=== PATIENT | female | born 1955 | race African-American/Black ===

== ENCOUNTER 2016-06-02 20:05 | Observation (INO) ==
[2016-06-02] MEDS ORDERED: ASPIRIN PO STA (20:22)
--- NOTE | 2016-06-02 20:30 | ED EKG INTERP ---
EKG Interpretation - EKG Time of EKG reading by physician:: 20:27 EKG Read and Signed by:: Doroteo Haynes EKG Interpretation (*Must complete 3 of following elements*): Abnormal Rate: 80 Rhythm: NSR [place]: left QRS: other (CANNOT RULE OUT ANTERIOR INFARCT, AGE UNDETERMINED) Attestation - Scribe Verification/Attestation Scribe:: Bea Charles Acting as Scribe for:: Doroteo Haynes Scribe documention review:: This chart was documented by a scribe and accurately reflects the service the provider performed and the decisions made by the provider. Physician Attestation - Physician Attestation I, the provider, attest to the following statement:: Doroteo Haynes Physician documentation Attestation:: This documentation recorded by the scribe accurately reflects the service I personally performed and the decisions made by me.
--- NOTE | 2016-06-02 20:32 | EKG Report ---
Test Performed on : 06/02/2016 8:26:51 PM Test Reason : CHEST PAIN Blood Pressure : / mmHG Vent. Rate : 080 BPM Atrial Rate : 080 BPM P-R Int : 174 ms QRS Dur : 082 ms QT Int : 386 ms P-R-T Axes : 039 -42 002 degrees QTc Int : 445 ms Normal sinus rhythm. Left axis deviation Cannot rule out Anterior infarct (cited on or before 30-SEP-2013) Abnormal ECG When compared with ECG of 30-SEP-2013 02:06, No significant change was found Unconfirmed Result
[2016-06-02 20:51] LABS: INR 0.9 (0.86-1.15); PROTIME 12.5 Seconds (12.1-15.5)
[2016-06-02 20:52] LABS: PTT PL 30.5 Seconds (22.6-43.9)
--- NOTE | 2016-06-02 21:10 | PROVIDER DOCUMENTATION ---
HPI-Chest Pain - General Source: patient - History of Present Illness-CP Location: reports: substernal Chest Pain Radiation: reports: arms (LEFT), back Quality of Pain: reports: aching, fullness Severity in ED: moderate Onset/Duration: 1 hour ago Timing: still present Context/Activities at Onset: reports: light activity Modifying Factors: improves with: nothing Associated Symptoms: reports: back pain. denies: diaphoresis, nausea, vomiting Nitro Today/Relief: no nitro taken today Aspirin Treatment Today: no aspirin today Prior Chest Pain/Cardiac Workup: reports: no prior chest pain, no prior cardiac workup Similar Symptoms Previously?: No Recently Seen Here or By Another Healthcare Provider: No <Bea Charles - Last Filed: 06/02/16 23:34> <Gabe Alvarenga - Last Filed: 06/03/16 00:20> - General Chief Complaint: Chest Pain Stated Complaint: CHEST PAIN Time Seen by Provider: 06/02/16 20:26 Allergies/Adverse Reactions: Patient Allergies Allergy/AdvReac Type Severity Reaction Status Date / Time codeine AdvReac HIVES Verified 09/30/13 02:28 Iodinated Contrast Media - AdvReac HIVES Verified 09/30/13 02:42 Oral and Home Medications: Home Medication List Medication Instructions Recorded Confirmed Last Taken Type Esomeprazole [Nexium] 40 mg PO DAILY #0 capsule 09/30/13 Unknown Rx LISINOpril [Prinivil] 20 mg PO DAILY 09/30/13 09/30/13 09/29/13 History Lactobacillus Rhamnosus GG 1 each PO DAILY 09/30/13 09/30/13 09/29/13 History [Probiotic] Cyclobenzaprine [Flexeril] 10 mg PO PRN 06/02/16 Unknown History - History of Present Illness-CP Nature of Presenting Problem: PT IS A 61YOF PRESENTING TO THE ED C/O CP. 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 PT DENIES ANY NAUSEA OR VOMITING. NO DIAPHORESIS AT THIS TIME. (Bea Charles) Review of Systems - Adult - REVIEW OF SYSTEMS - ADULT Constitutional: reports: no symptoms reported Eyes: reports: no symptoms reported Ears, Nose, Mouth & Throat: reports: no symptoms reported Cardiovascular: reports: see HPI, chest pain. denies: palpitations, syncope Respiratory: reports: no symptoms reported Gastrointestinal: reports: no symptoms reported Genitourinary: reports: no symptoms reported Musculoskeletal: reports: no symptoms reported Integumentary: reports: no symptoms reported Neurological: reports: no symptoms reported Psychiatric: reports: no symptoms reported Endocrine: reports: no symptoms reported Hematologic/Lymphatic: reports: no symptoms reported Allergic/Immunologic: reports: no symptoms reported All Other Systems: Reviewed and Negative <Bea Charles - Last Filed: 06/02/16 23:34> Past History - Adult - PAST MEDICAL HISTORY-ADULT Review of Records: reports: Old Records Reviewed, Nursing Assessment Review, Medications Reviewed, Social history reviewed & non-contributory. Major Childhood Illnesses: reports: denies history Cardiovascular: reports: HTN (recent diagnosis) Respiratory: reports: denies history Gastrointestinal: reports: GERD Obstetrical/Gynecological: reports: denies history Genitourinary: reports: denies history Musculoskeletal: reports: denies history Neurological: reports: denies history Endocrine/Immune: reports: denies history Other Conditions: reports: denies history - IMMUNIZATION STATUS Childhood Immunizations: See Nurse Assessment Flu Vaccine: See Nurse Assessment - FAMILY HISTORY Family History: reviewed, not pertinent - SOCIAL HISTORY Smoking: denies, non-smoker Substance Use: none/never, denies Alcohol Use Frequency: never Living Situation: family <Bea Charles - Last Filed: 06/02/16 23:34> Physical Exam-General - PHYSICAL EXAM-ADULT Initial Vital Signs Reviewed: Yes - CONSTITUTIONAL General Appearance: alert, mild distress, moderate distress. negative: appears well - EYES Eyes: PERRL/EOMI, pink conjunctivae, fundi clear, no AV nicking - HEAD, EARS, NOSE, MOUTH & THROAT HENMT: normocephalic/atraumatic, moist mucous membranes, normal ENT inspection, TMs normal, pharynx normal - NECK Neck: non-tender, full range of motion, supple, normal inspection - RESPIRATORY Respiratory: chest non-tender, lungs clear, normal breath sounds, no pleuratic chest pain, no respiratory distress, no accessory muscle use - CARDIOVASCULAR Cardiovascular: normal peripheral pulses, regular rate, rhythm, no edema, no gallop, no JVD, no murmur - GASTROINTESTINAL (ABDOMEN) Abdominal Exam: normal bowel sounds, non tender, soft, no organomegaly, no pulsatile mass - LYMPHATIC Lymphatic: no adenopathy - MUSCULOSKELETAL Back Exam: normal inspection, no CVA tenderness, no vertebral tenderness Extremity: normal range of motion, non-tender, normal gait, normal inspection, no pedal edema, no calf tenderness, normal capillary refill, pelvis stable - SKIN Integumentary: normal color, normal turgor, warm/dry - NEUROLOGIC 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 CORRELATE FOR PRIOER WORKUP AND CONSIDER FURTHER EVAL INDICATIED) <Bea Charles - Last Filed: 06/02/16 23:34> - CONSULTS/PCP/HOSPITALIST Notification #1 *Consult/PCP/Hospitalist*: Dr. 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 Consult Disposition: other #2 Consult: Dr. Lindquist Time Discussed: 00:19 (Will admit here and decide if transfe needed tomorrow.) Consult Disposition: Admit <Gabe Alvarenga - Last Filed: 06/03/16 00:20> - PLAN OF CARE/RESULTS Progress/Plan/Lab Results: Laboratory Tests 06/02/16 06/02/16 06/02/16 20:20 20:20 20:20 WBC RBC Hgb Hct MCV MCH MCHC RDW Std Deviation Plt Count MPV Immature Gran % (Auto) Neut % (Auto) Lymph % (Auto) [place] % (Auto) Eos % (Auto) Baso % (Auto) Immature Gran # (Auto) Neut # (Auto) Lymph # (Auto) [place] # (Auto) Eos # (Auto) Baso # (Auto) PT INR APTT (Factor Assay) D-Dimer Sodium 143 Potassium 3.5 Chloride 105 Carbon Dioxide 24 L Anion Gap 14 BUN 17 Creatinine 0.9 Estimated GFR/1.73 m2 > 60 BUN/Creatinine Ratio 19 Glucose 152 H Calculated Osmolality 289 Calcium 9.7 Magnesium 2.0 Total Bilirubin 0.50 AST 16 ALT 21 Alkaline Phosphatase 78 Creatine Kinase 146 Troponin T < 0.010 Jbl-[id number]-[id number] Pept 65 Total Protein 7.6 Albumin 4.0 Globulin 4.0 Albumin/Globulin Ratio 1.0 06/02/16 06/02/16 20:20 20:20 WBC 10.00 RBC 6.15 H Hgb 12.5 Hct 39.8 MCV 64.7 L MCH 20.3 L MCHC 31.4 L RDW Std Deviation 17.5 H Plt Count 266 MPV 11.1 H Immature Gran % (Auto) 0.3 Neut % (Auto) 52.0 Lymph % (Auto) 39.4 [place] % (Auto) 7.3 Eos % (Auto) 0.6 Baso % (Auto) 0.4 Immature Gran # (Auto) 0.03 Neut # (Auto) 5.20 Lymph # (Auto) 3.94 H [place] # (Auto) 0.73 H Eos # (Auto) 0.06 Baso # (Auto) 0.04 PT 12.5 INR 0.90 APTT (Factor Assay) 30.5 D-Dimer 0.79 H Sodium Potassium Chloride Carbon Dioxide Anion Gap BUN Creatinine Estimated GFR/1.73 m2 BUN/Creatinine Ratio Glucose Calculated Osmolality Calcium Magnesium Total Bilirubin AST ALT Alkaline Phosphatase Creatine Kinase Troponin T [id number] Pept Total Protein Albumin Globulin Albumin/Globulin Ratio Orders Category Date Time Status Cardiac Monitoring DIRECTED Care 06/02/16 20:22 Active Oxygen Therapy- ED Nursing DIRECTED Care 06/02/16 20:22 Active Saline Loc NOW Care 06/02/16 20:22 Active ANGIOGRAM/PULMONARY ARTERIES [CT] Stat Exams 06/02/16 22:02 Taken CHEST-2 VIEWS [RAD] Stat Exams 06/02/16 20:22 Taken CBC WITH ELECTRONIC DIFF [HEME] Stat Lab 06/02/16 20:20 Completed CK PROFILE [SP CHEM] Stat Lab 06/02/16 20:20 Completed COMPREHENSIVE METABOLIC PANEL [CHEM] Stat Lab 06/02/16 20:[address] D-DIMER [address] [COAG] Stat Lab 06/02/16 20:20 Completed MAGNESIUM [CHEM] Stat Lab 06/02/16 20:20 Completed PRO B-NATRIURETIC PEPTIDE Stat Lab 06/02/16 20:20 Completed [address]IME WITH INR PL [COAG] Stat Lab 06/02/16 20:[address] [COAG] Stat Lab 06/02/16 20:20 Completed TROPONIN T Stat Lab 06/02/16 20:20 Completed Aspirin Med 06/02/16 20:22 Discontinued 325 mg PO STAT STA Diphenhydramine [Benadryl] Med 06/02/16 22:13 Discontinued 50 mg IV NOW ONE Methylprednisolone Sod Succ [Solu-Medrol] Med 06/02/16 22:14 Discontinued 125 mg IV NOW ONE EKG [EKG] Stat Ther 06/02/16 20:22 Draft Vital Signs - 24 hr 06/02/16 20:15 Pulse Rate 87 Respiratory 20 Rate Blood Pressure 171/094 O2 Sat by Pulse 99 Oximetry (Bea Charles) Departure <Bea Charles - Last Filed: 06/02/16 23:34> - Departure Time of Disposition Order: 00:20 Certified Medical Emergency: Emergent <Gabe Alvarenga - Last Filed: 06/03/16 00:20> - Departure DIAGNOSIS: Chest pain Qualifiers: Chest pain type: unspecified Qualified Code(s): R07.9 - Chest pain, unspecified Disposition: ADMITTED INPATIENT 09 Condition: Stable Attestation - Scribe Verification/Attestation Scribe:: Bea Charles Acting as Scribe for:: Gabe Alvarenga Scribe documention review:: This chart was documented by a scribe and accurately reflects the service the provider performed and the decisions made by the provider. <Bea Charles - Last Filed: 06/02/16 23:34> - Physician/ LINDA Attestation Patient care was provided by Advanced Practice Provider:: Yes Advanced Practice Provider:: Gabe Alvarenga Advanced Practice Provider documentation review:: The Mid-level provider documentation, treatment plan and medical decision making was reviewed by the physician who agrees with all treatment and medical decision making by the [facility]. <Gabe Alvarenga - Last Filed: 06/03/16 00:20> Physician Attestation - Physician Attestation I, the provider, attest to the following statement:: Doroteo Haynes Physician documentation Attestation:: This documentation recorded by the scribe accurately reflects the service I personally performed and the decisions made by me. <Bea Charles - Last Filed: 06/02/16 23:34>
[2016-06-02 21:11] LABS: AGAP 14; ALKALINE PHOSPHATASE 78 U/L (32-104); BUN 17 mg/dL (8-22); CALCIUM 9.7 mg/dL (8.8-10.2); CHLORIDE 105 mmol/L (98-107); CK PROFILE 146 U/L (24-173); COSMO 289; GOT 16 U/L (10-30); GPT 21 U/L (10-36); POTASSIUM 3.5 mmol/L (3.5-5.1); SODIUM 143 mmol/L (136-145); TCO2 24 mmol/L (25-35); TOTAL PROTEIN 7.6 g/dL (6.3-8.3)
[2016-06-02] MEDS ORDERED: BENADRYL IV ONE (22:13)
[2016-06-02] MEDS ORDERED: SOLU-MEDROL IV ONE (22:14)
[2016-06-02 22:40] LABS: BASO% 0.4 % (0.0-0.8); EOS# 0.06 X1000 (0.0-0.7); EOS% 0.6 % (0.0-10.0); HEMATOCRIT 39.8 % (37.0-47.0); HEMOGLOBIN 12.5 g/dL (12.0-16.0); IMM GRAN# 0.03 X1000 (0.0-0.04); IMM GRAN% 0.3 % (0.0-0.5); LYMPH# 3.94 X1000 (1.2-3.4); LYMPH% 39.4 % (20.5-51.1); MANUAL DIFF NEEDED? NO; MCH 20.3 PG (27-31); MCHC 31.4 g/dL (33-37); MCV 64.7 FL (81-99); MONO# 0.73 X1000 (0.11-0.59); MONO% 7.3 % (1.7-9.3); MPV 11.1 FL (7.4-10.4); PLT 266 X1000 (130-400); RBC 6.15 XMIL (4.2-5.4)
[2016-06-03] MEDS ORDERED: PNEUMOVAX 23 IM ONE (01:19)
[2016-06-03] MEDS ORDERED: SALINE LOCK IV FLUID XX ONE (05:39)
[2016-06-03] MEDS ORDERED: ZOFRAN IV PRN (05:39)
[2016-06-03] MEDS ORDERED: TYLENOL PO PRN (05:39)
[2016-06-03] MEDS ORDERED: PROTONIX IV SCH (05:45)
[2016-06-03] MEDS ORDERED: SODIUM CHLORIDE 0.9% INJ SCH (05:45)
[2016-06-03] MEDS ORDERED: KLOR-CON PO ONE (06:04)
[2016-06-03 07:11] LABS: BASO% 0.1 % (0.0-0.8); HEMATOCRIT 39.9 % (37.0-47.0); HEMOGLOBIN 12.5 g/dL (12.0-16.0); LYMPH# 1.25 X1000 (1.2-3.4); LYMPH% 14.5 % (20.5-51.1); MCH 20.7 PG (27-31); MCHC 31.3 g/dL (33-37); MCV 66.1 FL (81-99); MONO# 0.09 X1000 (0.11-0.59); NEUT% 84.4 % (42.2-75.2); PLT 258 X1000 (130-400); RBC 6.04 XMIL (4.2-5.4)
--- NOTE | 2016-06-03 07:13 | Diag Imaging Result Document ---
PROCEDURE NAME: CHEST-2 VIEWS - 06/02/2016 FRONTAL AND LATERAL CHEST, TWO VIEWS: COMPARISON: 09/30/2013. FINDINGS: The lungs are well expanded. The heart is not enlarged. No pleural effusions. No consolidation. Mild left hilar prominence. IMPRESSION: Mild left hilar prominence which may be due to adenopathy.
[2016-06-03 07:20] LABS: HEMOGLOBIN A1C 6.8 % (4.8-6.0)
--- NOTE | 2016-06-03 07:35 | HISTORY AND PHYSICAL ---
PRIMARY CARE PROVIDER: Florin Black MD. CHIEF COMPLAINT: Chest pain. HISTORY OF PRESENT ILLNESS: This is a 61-year-old female with a history of GERD, hypertension which was recently diagnosed, who presents to the emergency room with chest pain that has been lasting over a day. She states that it is midsternal into her left chest and going into her left arm. She denies nausea, vomiting, diaphoresis, dizziness or headache or have associated complaints. She did state that she was feeling a little nauseous this previous Monday, but it did not have to do with this particular episode. A CT angio of her chest was obtained which ruled out pulmonary embolism or vascular abnormality. It did note a left upper lobe pulmonary nodule and mediastinal lymphadenopathy which was suspicious for malignancy. LABORATORY DATA: Grossly normal. Patient's D-dimer was mildly elevated which was the reason the CTA was obtained. At any rate, her CK and troponins were normal to this point. She was transferred to [facility] for admission. ALLERGIES: 1. Codeine. 2. Iodine. 3. IV and oral contrast. PAST MEDICAL HISTORY: 1. GERD. 2. Hypertension. PREVIOUS SURGICAL HISTORY: 1. Partial hysterectomy. 2. Cholecystectomy. FAMILY HISTORY: Mother had CVA. Her younger sister had breast cancer. SOCIAL HISTORY: She is . Lives at home with her . Denies tobacco, alcohol or illicit drug use or abuse. REVIEW OF SYSTEMS: Fourteen point review of systems and pertinent positives listed above. All other systems were negative. PHYSICAL EXAMINATION: VITAL SIGNS: Temperature 98.4 degrees, pulse 92, respirations 18, blood pressure 146/78, oxygen saturation 100% on room air. GENERAL: Pleasant 61-year-old female, well-developed, well-nourished. Sitting in the medical floor bed. Answers all questions appropriately. No acute distress. HEENT: Head is atraumatic, normocephalic. Pupils equal, round, react to light. Extraocular eye movement intact. Sclerae is anicteric. Conjunctivae is pink. Oral mucosa is moist. NECK: Supple. No JVD. No thyromegaly. Trachea is midline. No cervical lymphadenopathy. CARDIAC: Regular rhythm. S1-S2 appreciated. No murmurs, gallops, rubs. LUNGS: Clear to auscultation bilaterally. Poor inspiratory effort. Symmetrical rise and fall with respirations. ABDOMEN: Protuberant, soft, nondistended, nontender. Bowel sounds present in all 4 quadrants. Normoactive. No pulsatile mass. No organomegaly. EXTREMITIES: No clubbing, cyanosis, or edema. NEUROLOGICAL: No focal or motor deficits. Alert and oriented x4. SKIN: Warm, dry, intact. No acute lesions or rash. DIAGNOSTIC DATA: CT angio noted a left upper lobe pulmonary nodule and mediastinal lymphadenopathy suspicious for malignancy. LABORATORY DATA: WBC 10, hemoglobin 12.5, hematocrit 39.8, platelet count 266,000, coags within normal limits. D-dimer 0.79, sodium 143, potassium 3.5, chloride 105, carbon dioxide 24, BUN 17, creatinine 0.9, glucose 152. CK 146, troponin 0.010. ASSESSMENT AND PLAN: 1. Left upper lobe pulmonary nodule. Rule out malignancy. 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 Recheck laboratory data. 2. Chest pain rule out myocardial infarction. Trend cardiac enzymes. It is unlikely that this is cardiac in nature. The chest pain has resolved. The patient was given Benadryl and Solu- Medrol in the ER at [facility]. 3. Hypertension. Continue lisinopril. 4. Gastroesophageal reflux disease. Protonix 40 mg IV daily. 5. Hyperglycemia. Check hemoglobin A1c if patient does not carry a diagnosis of diabetes mellitus. However she did receive IV Solu-Medrol at [facility]. Further recommendations per patient clinical course. Dictated by SUSHMA Myrick for Frank Enamorado MD
[2016-06-03 07:38] LABS: AGAP 16; BUN 16 mg/dL (8-22); CALCIUM 9.7 mg/dL (8.8-10.2); CHLORIDE 105 mmol/L (98-107); COSMO 291; POTASSIUM 4.4 mmol/L (3.5-5.1); SODIUM 141 mmol/L (136-145); TCO2 20 mmol/L (25-35)
[2016-06-03 08:23] LABS: MANUAL DIFF NEEDED? NO
[2016-06-03] MEDS ORDERED: CULTURELLE PO SCH (09:00)
[2016-06-03] MEDS ORDERED: PRINIVIL PO SCH (09:00)
--- NOTE | 2016-06-03 09:17 | Diag Imaging Result Document ---
PROCEDURE NAME: ANGIOGRAM/PULMONARY ARTERIES - 06/02/2016 CTA CHEST: COMPARISON: None available. FINDINGS: There is respiratory motion artifact that affects the distal branches of the pulmonary arteries near the bases. This could decrease sensitivity for detecting small pulmonary emboli. However, no large central embolus can be identified. There is trace atherosclerotic calcification at the aortic arch. There is no evidence of aortic aneurysm or dissection. There is mediastinal lymphadenopathy. A few lymph nodes exhibit vague calcifications and are probably related to prior granulomatous disease. There are also calcified lymph nodes in the left hilum. However, there are also a few prominent noncalcified lymph nodes that are nonspecific. For reference, there is a large noncalcified lymph node in the aorticopulmonary window that measures approximately 2.5 x 2.2 cm axially. There is an indeterminate large noncalcified pulmonary nodule in the anterior left upper lobe measuring approximately 1.6 x 1.5 cm axially. Although this could represent a prominent noncalcified granuloma, continued surveillance is recommended based on [place] Society Criteria with an initial follow-up CT in 3 months for a nodule this size. There is focal scarring versus atelectasis in the right upper lobe. No pleural fluid collections are identified. There is no pneumothorax. Limited views of the upper abdomen reveal diffuse hepatic steatosis. IMPRESSION: 1. Somewhat limited study due to motion artifact. However, no pulmonary embolism is appreciated. 2. Prominent indeterminate noncalcified nodule in the anterior left upper lobe for which continued surveillance is recommended. Please see above discussion. 3. Nonspecific upper mediastinal lymphadenopathy. Please see above discussion. 4. Diffuse hepatic steatosis.
--- NOTE | 2016-06-03 12:12 | Diag Imaging Result Document ---
PROCEDURE NAME: CHEST-2 VIEWS - 06/03/2016 INSPIRATORY AND EXPIRATORY RADIOGRAPHS OF THE CHEST, 2 VIEWS: COMPARISON: 06/02/2016. FINDINGS: There is no evidence of pneumothorax status post left lung biopsy. The lungs are stable otherwise. No new consolidations identified. Cardiac silhouette is stable. IMPRESSION: No evidence of pneumothorax status post left lung biopsy.
--- NOTE | 2016-06-03 12:28 | Diag Imaging Result Document ---
PROCEDURE NAME: CT GUIDED BIOPSY LUNG - 06/03/2016 CT-GUIDED LEFT LUNG BIOPSY: COMPARISON: 06/02/2016. FINDINGS: Risks, benefits, and alternatives were discussed with the patient, and informed consent was obtained. The patient was prepped and draped in sterile fashion in a supine position. Local anesthesia was achieved with 1% lidocaine solution. Using CT guidance, an 18-gauge coaxial biopsy needle system was used to obtain two 1.3 cm core biopsies of the indeterminate nodule involving the anterior aspect of the left upper lobe. There were no known complications. A chest radiograph is to follow. IMPRESSION: Technically successful CT-guided lung biopsy.
--- NOTE | 2016-06-03 14:51 | CONSULTATION ---
DATE OF CONSULTATION: 06/03/2016 REFERRING PHYSICIAN: Dr. Jhony Marie. CHIEF COMPLAINT: Chest pain. HISTORY OF PRESENT ILLNESS: This is a 61-year-old, female with a past medical history of GERD and hypertension, who presented to the hospital with complaints of chest pain. During her diagnostics, it was found that she had a lung nodule that was suspicious for malignancy, and therefore she was admitted to the floor for further evaluation, management and treatment. REVIEW OF SYSTEMS: A 10-point review of systems was pertinent as noted in the HPI, otherwise noncontributory. PAST MEDICAL HISTORY: As mentioned in HPI, otherwise noncontributory. PAST SURGICAL HISTORY: Partial hysterectomy and cholecystectomy. ALLERGIES: Codeine, iodine, IV and oral contrast. FAMILY HISTORY: Notable for CVA and breast cancer. SOCIAL HISTORY: The patient is and lives at home with her . Denies use of tobacco, alcohol or illicit drugs. PHYSICAL EXAMINATION: Vital Signs: Temperature 97.8, heart rate 75, respiratory rate 18, blood pressure 120/54, oxygen saturation 100%. General: Awake, alert, sitting up in bed, no acute distress noted. HEENT: Normocephalic and atraumatic. PERRL. Cardiovascular: Regular rate and rhythm. S1, S2 present. Chest: Reduced entry. Abdomen: Protuberant, soft, nontender. Bowel sounds present in all quadrants. Extremities: No edema noted. Neurologic: Alert and oriented x3. No focal deficits. LABS/INVESTIGATIONS: WBC 8.63, RBC 6.04, hemoglobin 12.5, hematocrit 39.9, platelet count 258. Sodium 141, potassium 4.4, chloride 105, CO2 20, anion gap 16, BUN 16, creatinine 0.6, glucose 257. A chest x-ray shows mild left hilar prominence. ASSESSMENT AND PLAN: This is a 61-year-old, female with past medical history mentioned in the HPI that presented to the hospital with complaints of chest pain. During her diagnostics, it was found that she had a left upper lobe pulmonary nodule suspicious for malignancy. This will be investigated, as well as trended cardiac enzymes and electrocardiograms. The chest pain has resolved at this time. Continue home medications for hypertension and Protonix for gastrointestinal prophylaxis. Further recommendations pending diagnostic studies. Dictated by SUSHMA Rizzo for Maria Heller MD
[2016-06-03 15:17] VITALS: BP 121/56
[2016-06-03] MEDS ORDERED: ATROVENT NEB ONE (16:19)
--- NOTE | 2016-06-04 15:10 | DISCHARGE SUMMARY ---
ADMISSION DATE: 06/03/2016 DISCHARGE DATE: 06/03/2016 FINAL DIAGNOSES: 1. Chest pain, atypical. 2. Gastroesophageal reflux disease. 3. Left anterior upper lobe pulmonary nodule. 4. Possible left hilar adenopathy. 5. Mild type 2 diabetes. HISTORY: This is the first recent [facility] admission for this 61-year-old black female patient of Dr. Black who presented to the emergency room with chest discomfort which had been persistent for a day and a half. Shortly after admission the pain resolved. Initial EKG and enzymes were normal. She was admitted for further evaluation. Dr. Heller was consulted. INITIAL LABORATORY: Hemoglobin 12.5, hematocrit 39.8, white blood count 10,000 with 52% neutrophils. Sodium was 141, potassium 4.4, BUN 16, creatinine 0.9. Glucose 257. Hemoglobin A1c 6.8. Lipids revealed cholesterol 177, LDL 121, HDL 60. CPK was 120 and troponin less than 0.01. HOSPITAL COURSE: She underwent needle biopsy of the left upper lobe pulmonary nodule by Dr. Pate in radiology. There were no complications with chest x-ray showing no pneumothorax following the procedure. She feels well this evening with no chest discomfort. She is discharged home on her usual medication plus Protonix for gastroesophageal reflux. She is to return to Dr. Black in 1 week for followup of biopsy results.
== END 2016-06-03 18:13 | disposition home or self-care (01) ==
LOC: P.ED 20:05 → P.MEDSURG 20:34 → INTOOBSV 20:34 → P.MEDSURG 06-03 00:36 → UNDOADMIN 06-03 00:36 → P.MEDSURG 06-03 05:10 → 3N 06-03 05:10 → UNDODISIN 06-03 18:13
PROVIDERS: ADMIT Family Medicine; ATTEND Family Medicine
DX: R07.89 Other chest pain (principal); R91.1 Solitary pulmonary nodule; K21.9 Gastro-esophageal reflux disease without esophagitis; I10 Essential (primary) hypertension; Z82.3 Family history of stroke; Z80.3 Family history of malignant neoplasm of breast; E11.65 Type 2 diabetes mellitus with hyperglycemia; Z79.899 Other long term (current) drug therapy
CPT/HCPCS: 32405; 71020; 71275; 77012; 80048; 80053; 80061; 82550; 83036; 83721; 83735; 83880; 84484; 85025; 85379; 85610; 85730; 88305; 88312; 93005; 94761; 96374; 96375; C9113; J1200; J2930; Q9967; S0164